=== PATIENT | female | born 1995 | race Caucasian/White ===

== ENCOUNTER → 2017-07-13 | Outpatient (CLI) | payer BC ==
--- NOTE | 2017-07-13 08:56 | DIAGNOSTIC IMAGING REPORT ---
THYROID ULTRASOUND HISTORY: THYROID NODULE COMPARISON: Thyroid ultrasound 02/27/2014. FINDINGS: Right lobe: 5.8 x 1.6 x 1.9 cm. Dominant solid and cystic nodule within the mid to lower pole measuring 2.5 x 1.3 x 0.9 cm. This has decreased in size in presumed measured 3.2 cm. There are few additional subcentimeter hypoechoic nodules/cysts identified. Left lobe: 5.6 x 1.6 x 1.7 cm. There is a single subcentimeter solid nodule measuring 8 x 5 mm. This does not meet sonographic criteria for biopsy. Additional solid and cystic nodules with the largest measuring 1.5 x 1.2 x 0.7 cm medially. This has decreased in size but was primarily cystic on the prior study. Regardless, these nodules do not meet sonographic criteria for biopsy. Isthmus: 3 mm in thickness. IMPRESSION: Multinodular thyroid gland as described above. The dominant nodule within the right lobe has decreased in size. Additional nodules do not meet sonographic criteria for biopsy. Electronically signed by: Matthew Guerrero M.D. 07/13/2017 8:55 AM Dictated Date/Time: 07/13/2017 8:51 AM
== END | disposition home or self-care (01) ==
LOC: C.ULTR 08:03
PROVIDERS: ATTEND Pediatrics Pediatric Endocrinology
DX: E04.1 Nontoxic single thyroid nodule (principal)

== ENCOUNTER → 2017-07-15 | Outpatient (CLI) | payer BC ==
--- NOTE | 2017-07-18 13:46 | PULMONARY FUNCTION TEST ---
Spirometry is normal. Repeat study done following bronchodilator showed no change in function. Review of the flow volume loops shows that she did not perform the inspiratory portion of the flow volume loops. Expiratory portion was normal.
== END | disposition home or self-care (01) ==
LOC: C.RC 09:46
PROVIDERS: ATTEND Physician Assistant
DX: R05 Cough (principal)